=== PATIENT | female | born 1955 | race Caucasian/White ===

== ENCOUNTER 2018-02-21 23:46 | Emergency (ER) | payer OTHER ==
[2018-02-22 00:08] VITALS: BP 143/101; PULSE 92; TEMP 98; BMI 23.4
--- NOTE | 2018-02-22 00:55 | PDOC ---
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 Patient uses [facility] for her dental care. She states that she had initial pain secondary to the implants but seemed to improve until the last 24 hours when she noted left cheek edema and increased pain in the area around the implants. She is scheduled to see the oral surgeon at [facility] tomorrow but felt the pain and swelling was too severe to wait until then for treatment. No fever/chills. No difficulty or pain with swallowing. She has been able to take her other medications as prescribed. Past History - Past Medical History Allergies/Adverse Reactions: Allergies Allergy/AdvReac Type Severity Reaction Status Date / Time No Known Allergies Allergy Verified 02/21/18 23:48 Home Medications: Ambulatory Orders Donepezil HCl 10 mg PO DAILY 02/21/18 Lamotrigine [Lamictal] 600 mg PO TID 02/21/18 Meloxicam 15 mg PO DAILY 02/21/18 Triamterene/Hydrochlorothiazid [Dyazide 37.5-25 Capsule] 1 each PO DAILY Butalb/Acetaminophen/Caffeine [Ulqhgk-Lamvaipi-Qjbt 50-325-40] 1 each PO PRN Clindamycin HCl [Cleocin HCl] 300 mg PO TID #20 capsule 02/22/18 COPD: No Other medical history: LEFT HEMIPARESIS/SEIZURE DISORDER - Suicide/Smoking/Psychosocial Hx Smoking History: Never smoked Have you smoked in the past 12 months: No Information on smoking cessation initiated: No Hx Alcohol Use: No Drug/Substance Use Hx: No Substance Use Type: None Review of Systems - Review of Systems Able to Perform ROS?: Yes Comments:: 12 point review of systems is negative except for what is noted in the history of present illness *Physical Exam - Vital Signs Last Vital Signs Temp Pulse Resp BP Pulse Ox 98 F 92 H 16 143/101 H 98 02/22/18 00:03 02/22/18 00:03 02/22/18 00:03 02/22/18 00:03 02/22/18 00:03 - Physical Exam Comments: GENERAL: Adult female, alert and oriented 3, in moderate distress secondary to tooth pain HEAD: Normal with no signs of trauma. EYES: PERRLA, EOMI, sclera anicteric, conjunctiva clear. ENT: Ears normal, nares patent, moderate left cheek edema without erythema/ fluctuance Moderate tenderness/mild edema/mild erythema periapical areas of left upper molar area implants NECK: Normal range of motion, supple without lymphadenopathy, JVD, or masses. LUNGS: Breath sounds equal, clear to auscultation bilaterally. No wheezes, and no crackles. Medical Decision Making - Medical Decision Making This 63-year-old woman presents with increased pain/cheek edema in the area where implants were placed 4 days ago. Patient had initial pain that improved over the first 72 hours; in the last day, she has had worsening of pain in the cheek edema. Exam consistent with periapical infection in the upper left molar implant region. Patient treated with clindamycin 300 mg by mouth as well as 1 tablet of Percocet 5/325 by mouth. Prescription for clindamycin 300 mg 3 times a day for one week sent to her pharmacy. Patient will follow-up with oral surgeon next same part of this dental clinic tomorrow as previously scheduled. *DC/Admit/Observation/Transfer Diagnosis at time of Disposition: Dental infection - Discharge Dispostion Disposition: HOME Condition at time of disposition: Stable - Prescriptions Prescriptions: Clindamycin HCl [Cleocin HCl] 300 mg PO TID #20 capsule - Referrals - Patient Instructions Printed Discharge Instructions: DI for Dental Pain Additional Instructions: continue medications as previously prescribed clindamycin 300mg three times a day for 1 week followup with oral surgeon tomorrow as scheduled - Post Discharge Activity
[2018-02-22] MEDS ORDERED: CLINDAMYCIN HCL 150 MG CAPSULE (FP) ONE (01:13)
[2018-02-22] MEDS ORDERED: CLINDAMYCIN HCL 300 MG CAPSULE PO ONE (01:13)
== END 2018-02-22 01:31 | disposition home or self-care (01) ==
LOC: FER 23:46
DX: K04.7 Periapical abscess without sinus (principal); G40.909 Epilepsy, unspecified, not intractable, without status epilepticus
CPT/HCPCS: 99281-25

== ENCOUNTER 2020-08-19 22:22 | Emergency (ER) | payer OTHER ==
[2020-08-19 22:36] VITALS: BP 140/96; PULSE 73; TEMP 98.1; BMI 22.6
[2020-08-19] MEDS ORDERED: ACETAMINOPHEN 500 MG TABLET (FP) PO ONE (23:17)
[2020-08-19] MEDS ORDERED: ACETAMINOPHEN 500 MG TABLET (FP) ONE (23:19)
== END 2020-08-19 23:56 | disposition home or self-care (01) ==
LOC: FER 22:22
DX: T63.461A Toxic effect of venom of wasps, accidental (unintentional), initial encounter (principal)
CPT/HCPCS: 99283-25

== ENCOUNTER 2021-01-09 14:50 | Emergency (ER) | payer OTHER ==
[2021-01-09 15:00] VITALS: BP 127/85; PULSE 72; TEMP 97.8; BMI 22.8
[2021-01-09] MEDS ORDERED: IBUPROFEN 600 MG TABLET (FP) PO ONE ×2 (15:44→16:37)
== END 2021-01-09 17:55 | disposition home or self-care (01) ==
LOC: FER 14:50
DX: M25.512 Pain in left shoulder (principal); M25.552 Pain in left hip; M25.562 Pain in left knee; W01.0XXA Fall on same level from slipping, tripping and stumbling without subsequent striking against object, initial encounter; Y93.41 Activity, dancing
CPT/HCPCS: 71101-TC-LT-FY; 73030-TC-LT-FY; 73523-TC-FY; 73552-TC-LT-FY; 73562-TC-LT-FY; 99285-25

== ENCOUNTER 2021-03-10 15:30 | Emergency (ER) | payer OTHER ==
[2021-03-10 15:59] VITALS: BMI 21.9
[2021-03-10] MEDS ORDERED: ACETAMINOPHEN 1000 MG/100 ML VIAL IVPB ONE (16:08)
[2021-03-10] MEDS ORDERED: SODIUM CHLORIDE 0.9% 1000 ML INFUS.BAG IV ONE (16:08)
[2021-03-10] MEDS ORDERED: ACETAMINOPHEN INJECTION 100 ML IVPB ONE (16:21)
[2021-03-10 16:47] LABS: BASO % 1.7 % (0-2.0); EOS % 0.1 % (0-4.5); HEMATOCRIT 47.8 % (32.4-45.2); HEMOGLOBIN 16.1 GM/dl (10.7-15.3); LYMPH % 5.1 % (8-40); MCH 31.4 pg (25.7-33.7); MCHC 33.7 g/dl (32.0-36.0); MEAN CELL VOLUME 93.2 fl (80-96); MEAN PLT VOLUME 8.2 fl (7.5-11.1); MONO % 8.8 % (3.8-10.2); NEUT % 84.3 % (42.8-82.8); PLATELET COUNT 179 10^3/uL (134-434); RBC 5.13 M/mm3 (3.60-5.2); RDW 12.6 % (11.6-15.6); WHITE BLOOD COUNT 6.1 K/mm3 (4.0-10.8)
[2021-03-10 17:00] LABS: ALBUMIN 4.3 g/dl (3.4-5.0); BILIRUBIN,TOTAL 0.8 mg/dl (0.2-1); CALCIUM 9.1 mg/dl (8.5-10); CREATININE 0.6 mg/dl (0.55-1.3); TOT PROT 7.1 g/dl (6.4-8.2)
[2021-03-10] MEDS ORDERED: OSELTAMIVIR PHOSPHATE 75 MG CAPSULE PO ONE (18:41)
[2021-03-10] MEDS ORDERED: OSELTAMIVIR PHOSPHATE 75 MG CAPSULE ONE (18:45)
[2021-03-10 19:34] VITALS: BP 116/79; PULSE 103; TEMP 99.3
== END 2021-03-10 20:00 | disposition home or self-care (01) ==
LOC: FER 15:30
PROC: 3E033NZ Introduction of Analgesics, Hypnotics, Sedatives into Peripheral Vein, Percutaneous Approach (ICD-10-PCS; principal; 2021-03-10)
DX: J09.X2 Influenza due to identified novel influenza A virus with other respiratory manifestations (principal)
CPT/HCPCS: 36415; 71045-TC-FY; 80053; 85025; 87804; 96374; 99284-25; C9803; J0131; U0003; U0005

== ENCOUNTER 2021-08-18 20:24 | Emergency (ER) | payer OTHER ==
[2021-08-18 20:48] VITALS: BP 129/90; PULSE 80; TEMP 98.6; BMI 23.6
== END 2021-08-18 21:39 | disposition home or self-care (01) ==
LOC: FER 20:24
DX: J06.9 Acute upper respiratory infection, unspecified (principal)
CPT/HCPCS: 99284-25

== ENCOUNTER 2022-06-04 13:40 | Emergency (ER) | payer OTHER ==
[2022-06-04 13:50] VITALS: BP 116/77; PULSE 69; RESP 18; TEMP 98.3; BMI 22.4
[2022-06-04] MEDS ORDERED: ACETAMINOPHEN 500 MG TABLET (FP) PO ONE (13:59)
[2022-06-04] MEDS ORDERED: ACETAMINOPHEN 500 MG TABLET (FP) ONE (14:01)
== END 2022-06-04 16:25 | disposition home or self-care (01) ==
LOC: FER 13:40
DX: S06.0X0A Concussion without loss of consciousness, initial encounter (principal); W01.0XXA Fall on same level from slipping, tripping and stumbling without subsequent striking against object, initial encounter
CPT/HCPCS: 70450-TC; 72125-TC; 99284-25

== ENCOUNTER 2022-11-09 13:54 | Emergency (ER) | payer OTHER ==
[2022-11-09 14:05] VITALS: BP 128/97; PULSE 70; RESP 18; TEMP 98.1; BMI 23.0
[2022-11-09] MEDS ORDERED: DIPHTH,PERTUSS(ACELL),TET 0.5 ML DISP.SYRIN IM ONE ×2 (14:18→14:26)
== END 2022-11-09 17:15 | disposition home or self-care (01) ==
LOC: FER 13:54
PROC: 0HQFXZZ Repair Right Hand Skin, External Approach (ICD-10-PCS; principal; 2022-11-09)
PROC: 3E0234Z Introduction of Serum, Toxoid and Vaccine into Muscle, Percutaneous Approach (ICD-10-PCS; 2022-11-09)
DX: S60.412A Abrasion of right middle finger, initial encounter (principal); W01.0XXA Fall on same level from slipping, tripping and stumbling without subsequent striking against object, initial encounter
CPT/HCPCS: 70450-TC; 72125-TC; 73030-TC-LT-FY; 73130-TC-LT-FY; 73130-TC-RT-FY; 99283-25

== ENCOUNTER 2023-06-27 17:27 | Emergency (ER) | payer OTHER ==
[2023-06-27 17:48] VITALS: BP 145/90; PULSE 79; RESP 20; TEMP 98; BMI 23.6
[2023-06-27] MEDS ORDERED: MECLIZINE HCL 25 MG TABLET (FP) ONE (18:16)
[2023-06-27] MEDS: MECLIZINE HCL 25 MG TABLET (FP) PO ONE (18:17)
== END 2023-06-27 19:30 | disposition home or self-care (01) ==
LOC: FER 17:27
DX: H92.03 Otalgia, bilateral (principal); R53.1 Weakness; R42 Dizziness and giddiness; H61.23 Impacted cerumen, bilateral
CPT/HCPCS: 99283-25

== ENCOUNTER 2023-09-11 16:47 | Emergency (ER) | payer OTHER ==
[2023-09-11] MEDS ORDERED: diphenhydrAMINE HCL 25 MG CAPSULE (FP) PO ONE (16:55)
[2023-09-11] MEDS ORDERED: ACETAMINOPHEN 325 MG TABLET (FP) ONE (16:55)
[2023-09-11] MEDS: ACETAMINOPHEN 325 MG TABLET (FP) PO ONE (17:00)
[2023-09-11] MEDS: diphenhydrAMINE HCL 25 MG CAPSULE (FP) PO ONE (17:00)
[2023-09-11 17:03] VITALS: BP 112/59; PULSE 63; RESP 18; TEMP 98.3; BMI 23.7
== END 2023-09-11 17:15 | disposition home or self-care (01) ==
LOC: FER 16:47
DX: T63.444A Toxic effect of venom of bees, undetermined, initial encounter (principal)
CPT/HCPCS: 99283-25

== ENCOUNTER 2023-09-11 20:16 | Emergency (ER) | payer OTHER ==
[2023-09-11 20:34] VITALS: BP 138/75; PULSE 84; RESP 18; TEMP 98; BMI 23.7
[2023-09-11] MEDS ORDERED: diphenhydrAMINE HCL 25 MG CAPSULE (FP) PO ONE (20:36)
[2023-09-11] MEDS ORDERED: DEXAMETHASONE 4 MG TABLET (FP) ONE (20:36)
[2023-09-11] MEDS: diphenhydrAMINE HCL 25 MG CAPSULE (FP) PO ONE (20:38)
[2023-09-11] MEDS: LIDOCAINE 2.5%/PRILOCAINE 2.5% 30 GRAM TUBE TP ONE (20:38)
[2023-09-11] MEDS: DEXAMETHASONE 4 MG TABLET (FP) PO ONE (20:38)
[2023-09-11] MEDS ORDERED: IBUPROFEN 600 MG TABLET (FP) PO ONE (20:45)
[2023-09-11] MEDS: IBUPROFEN 600 MG TABLET (FP) PO ONE (20:49)
== END 2023-09-11 21:05 | disposition home or self-care (01) ==
LOC: FER 20:16
DX: T63.441A Toxic effect of venom of bees, accidental (unintentional), initial encounter (principal)
CPT/HCPCS: 99283-25

== ENCOUNTER 2024-03-19 12:49 | Emergency (ER) | payer OTHER ==
[2024-03-19] MEDS ORDERED: ALBUTEROL SO4 2.5/IPRATROPIUM 0.5 INH SOL 3 ML VIAL.NEB. NEB ONE (15:07)
[2024-03-19] MEDS: ALBUTEROL SO4 2.5/IPRATROPIUM 0.5 INH SOL 3 ML VIAL.NEB. NEB ONE (15:12)
[2024-03-19 16:12] VITALS: BP 92/66; PULSE 88; RESP 17; TEMP 98.6; BMI 22.6
[2024-03-19 16:31] LABS: HIV INTERPRETATION NEGATIVE (NEGATIVE)
== END 2024-03-19 16:10 | disposition home or self-care (01) ==
LOC: FER 12:49
PROC: 3E0F7GC Introduction of Other Therapeutic Substance into Respiratory Tract, Via Natural or Artificial Opening (ICD-10-PCS; principal; 2024-03-19)
DX: R05.2 Subacute cough (principal); R09.81 Nasal congestion; Z20.822 Contact with and (suspected) exposure to COVID-19
CPT/HCPCS: 0241U-QW; 36415; 71046-TC-FY; 86803; 87389; 94640; 99284-25

== ENCOUNTER 2025-01-25 16:36 | Emergency (ER) | payer OTHER ==
[2025-01-25] MEDS: BUPIVACAINE HCL/PF 0.5% (5 MG/ML) 30 ML VIAL IJ ONE (17:11)
[2025-01-25 17:47] VITALS: BP 131/101; PULSE 79; RESP 18; TEMP 97.8; BMI 23.0
[2025-01-25] MEDS ORDERED: LIDOCAINE 5% TOPICAL PATCH ONE (18:27)
[2025-01-25] MEDS ORDERED: KETOROLAC TROMETHAMINE 30 MG/1 ML VIAL ONE (18:27)
[2025-01-25] MEDS ORDERED: ACETAMINOPHEN 500 MG TABLET (FP) ONE (18:27)
[2025-01-25] MEDS: KETOROLAC TROMETHAMINE 30 MG/1 ML VIAL IM ONE (18:28)
[2025-01-25] MEDS: ACETAMINOPHEN 500 MG TABLET (FP) PO ONE (18:28)
[2025-01-25] MEDS: LIDOCAINE 5% TOPICAL PATCH TP ONE (18:29)
[2025-01-25] MEDS ORDERED: LIDOCAINE PATCH REMOVAL MC SCH (22:00)
== END 2025-01-25 18:42 | disposition home or self-care (01) ==
LOC: FER 16:36
PROC: 3E0T3BZ Introduction of Anesthetic Agent into Peripheral Nerves and Plexi, Percutaneous Approach (ICD-10-PCS; principal; 2025-01-25)
PROC: 3E0T3BZ Introduction of Anesthetic Agent into Peripheral Nerves and Plexi, Percutaneous Approach (ICD-10-PCS; 2025-01-25)
PROC: 3E0233Z Introduction of Anti-inflammatory into Muscle, Percutaneous Approach (ICD-10-PCS; 2025-01-25)
DX: R51.9 Headache, unspecified (principal); M54.2 Cervicalgia; V43.62XA Car passenger injured in collision with other type car in traffic accident, initial encounter; Y92.410 Unspecified street and highway as the place of occurrence of the external cause
CPT/HCPCS: 99284-25